=== PATIENT | male | born 1985 | race Caucasian/White ===

== ENCOUNTER 2018-01-01 21:31 | Observation (INO) | payer OTHER ==
[~2018-01-01] VITALS: Ht 170.2 cm; Wt 68.0 kg
[2018-01-01 21:47] LABS: BASOPHILS ABSOLUTE AUTO 0.05 K/mm3 (0.00-0.23); BASOPHILS PERCENT AUTO 1 % (0-2); EOSINOPHILS ABSOLUTE AUTO 0.11 K/mm3 (0.00-0.68); EOSINOPHILS PERCENT AUTO 2 % (0-6); Hemoglobin 14.7 g/dL (13.5-17.5); IMMATURE GRAN ABSOLUTE AUTO 0.02 K/mm3 (0.00-0.10); IMMATURE GRAN PERCENT AUTO 0 % (0-1); LYMPHOCYTES ABSOLUTE AUTO 2.53 K/mm3 (0.84-5.20); LYMPHOCYTES PERCENT AUTO 34 % (21-46); MONOCYTES ABSOLUTE AUTO 0.68 K/mm3 (0.16-1.47); MONOCYTES PERCENT AUTO 9 % (4-13); Mean Corpuscular HGB Conc 34.2 g/dL (31.5-36.5); Mean Corpuscular Volume 94 fL (80-100); Mean Platelet Volume 11.3 fL (9.1-12.4); NEUTROPHILS ABSOLUTE AUTO 4.17 K/mm3 (1.96-9.15); NEUTROPHILS PERCENT AUTO 55 % (41-73); Platelet Count 230 K/mm3 (150-400); RDW Coefficient Variation 11.9 % (11.7-14.2); RDW Standard Deviation 40.9 fL (35.1-46.3); Red Blood Cell Count 4.59 M/mm3 (4.30-5.90); White Blood Cell Count 7.56 K/mm3 (4.00-11.30)
[2018-01-01 21:57] LABS: Alanine Aminotransfer (ALT/SGP 30 U/L (12-78); Albumin, Blood 3.8 g/dL (3.4-5.0); Albumin/Globulin Ratio 1.2 (0.8-1.8); Alk Phos 50 U/L (50-136); Anion Gap 10 mmol/L (6-16); Aspartate Aminotrans (AST/SGOT 33 U/L (12-37); Bilirubin, Total 0.5 mg/dL (0.1-1.0); Blood Urea Nitrogen 11 mg/dL (8-24); Bun/Creatinine Ratio 9.6 (12.0-20.0); CO2, Blood 26 mmol/L (21-32); Calcium, Blood 8.2 mg/dL (8.5-10.1); Chloride, Blood 108 mmol/L (98-108); Creatinine, Blood 1.15 mg/dL (0.60-1.20); Globulin, Blood 3.3 g/dL (2.2-4.0); Glomerular Filtration Rate >60 (60-); Glucose, Blood 89 mg/dL (70-99); Potassium, Blood 4.5 mmol/L (3.5-5.5); Sodium, Blood 144 mmol/L (136-145); Total Protein, Blood 7.1 g/dL (6.4-8.2)
[2018-01-01 23:35] LABS: Ethanol (Alcohol), Blood, Med 220 mg/dL
[2018-01-15] MEDS ORDERED: ACET500 (23:55)
[2018-01-15] MEDS ORDERED: IBUP400 PO (23:56)
[2018-01-16] MEDS ORDERED: TRAM50 PO (00:38)
[2018-01-16] MEDS ORDERED: Protonix40 MG PO (00:38)
== END 2018-01-02 05:37 | disposition home or self-care (01) ==
LOC: ER 21:31 → EOR 21:32
PROVIDERS: Emergency Medicine
DX: F10.129 Alcohol abuse with intoxication, unspecified (principal); K29.20 Alcoholic gastritis without bleeding; F17.200 Nicotine dependence, unspecified, uncomplicated; Y90.7 Blood alcohol level of 200-239 mg/100 ml
CPT/HCPCS: 36415; 80053; 83690; 85025; 96360; 96361; 99284-25; G0378; G0480; J7030

== ENCOUNTER 2019-06-18 08:52 | Emergency (ER) | payer OTHER ==
[~2019-06-18] VITALS: Ht 170.2 cm; Wt 64.4 kg
[~2019-06-18 08:52] MED LIST: ACET500; BENZ100A PO; Cheratussin AC118 ML PO; Flonase 0.05% N16 GM; IBUP400 PO; IBUP600 PO; Protonix40 MG PO; Sudogest30 MG PO; TRAM50 PO
[2019-06-18] MEDS ORDERED: Norco 10-325 T1 EACH PO (10:23)
[2019-06-18] MEDS ORDERED: Crutch1 EACH MISC (10:24)
== END 2019-06-18 10:38 | disposition home or self-care (01) ==
LOC: ER 08:52
DX: M23.91 Unspecified internal derangement of right knee (principal); K21.9 Gastro-esophageal reflux disease without esophagitis; Z88.0 Allergy status to penicillin; Z87.891 Personal history of nicotine dependence
CPT/HCPCS: 29505; 73564; 99283-25; A9270-GY

== ENCOUNTER 2019-07-07 17:41 | Emergency (ER) | payer OTHER ==
[~2019-07-07] VITALS: Ht 170.2 cm; Wt 69.8 kg
[~2019-07-07 17:41] MED LIST changes: +Crutch1 EACH MISC; +Norco 10-325 T1 EACH PO
== END 2019-07-07 20:45 | disposition home or self-care (01) ==
LOC: ER 17:41
DX: T88.59XA Other complications of anesthesia, initial encounter (principal); L29.8 Other pruritus; T41.3X5A Adverse effect of local anesthetics, initial encounter; K21.9 Gastro-esophageal reflux disease without esophagitis; Z88.0 Allergy status to penicillin; Z87.891 Personal history of nicotine dependence; Z98.890 Other specified postprocedural states
CPT/HCPCS: 36415; 93005; 93010; 96361; 96374; 96375; 96376; 99283-25; J1100; J1200; J7030

== ENCOUNTER 2019-07-14 09:23 | Emergency (ER) | payer OTHER ==
[~2019-07-14] VITALS: Ht 170.2 cm; Wt 74.8 kg
[2019-07-14] MEDS ORDERED: IBUP600 PO (10:52)
[2019-07-14] MEDS ORDERED: HYDR1TAB94 PO (10:52)
== END 2019-07-14 11:29 | disposition home or self-care (01) ==
LOC: ER 09:23
DX: S62.307A Unspecified fracture of fifth metacarpal bone, left hand, initial encounter for closed fracture (principal); S50.01XA Contusion of right elbow, initial encounter; K21.9 Gastro-esophageal reflux disease without esophagitis; Z88.0 Allergy status to penicillin; Z87.891 Personal history of nicotine dependence; V29.9XXA Motorcycle rider (driver) (passenger) injured in unspecified traffic accident, initial encounter
CPT/HCPCS: 29125; 73080; 73110; 73130; 99283-25

== ENCOUNTER 2019-08-14 08:00 | Emergency (ER) | payer OTHER ==
[~2019-08-14] VITALS: Ht 170.2 cm; Wt 69.0 kg
[~2019-08-14 08:00] MED LIST changes: +HYDR1TAB94 PO
[2019-08-14 09:48] LABS: Influenza A Negative (NEGATIVE); Influenza B Negative (NEGATIVE)
[2019-08-14] MEDS ORDERED: BENZ100A PO (10:12)
[2019-08-14] MEDS ORDERED: ALBU90OI INH (10:12)
== END 2019-08-14 10:19 | disposition home or self-care (01) ==
LOC: ER 08:00
PROVIDERS: Emergency Medicine
DX: J40 Bronchitis, not specified as acute or chronic (principal); Z88.0 Allergy status to penicillin; Z87.891 Personal history of nicotine dependence
CPT/HCPCS: 71046; 87804; 93005; 93010; 94640; 99284-25

== ENCOUNTER 2019-08-26 14:05 | Emergency (ER) | payer OTHER ==
[~2019-08-26] VITALS: Ht 170.2 cm; Wt 70.8 kg
[~2019-08-26 14:05] MED LIST changes: +ALBU90OI INH; +CODEINE-GUAIFE120 ML PO
== END 2019-08-26 14:25 | disposition home or self-care (01) ==
LOC: ER 14:05
DX: J20.8 Acute bronchitis due to other specified organisms (principal); Z88.0 Allergy status to penicillin; Z79.899 Other long term (current) drug therapy; Z87.891 Personal history of nicotine dependence
CPT/HCPCS: 99281

== ENCOUNTER 2019-08-31 13:58 | Emergency (ER) | payer OTHER ==
[~2019-08-31] VITALS: Ht 170.2 cm; Wt 63.5 kg
[2019-08-31 15:37] LABS: BASOPHILS ABSOLUTE AUTO 0.05 K/mm3 (0.00-0.23); BASOPHILS PERCENT AUTO 1 % (0-2); EOSINOPHILS ABSOLUTE AUTO 0.01 K/mm3 (0.00-0.68); EOSINOPHILS PERCENT AUTO 0 % (0-6); Hematocrit 47.2 % (37.0-53.0); Hemoglobin 15.9 g/dL (13.5-17.5); IMMATURE GRAN ABSOLUTE AUTO 0.01 K/mm3 (0.00-0.10); IMMATURE GRAN PERCENT AUTO 0 % (0-1); LYMPHOCYTES ABSOLUTE AUTO 1.37 K/mm3 (0.84-5.20); LYMPHOCYTES PERCENT AUTO 24 % (21-46); MONOCYTES ABSOLUTE AUTO 0.51 K/mm3 (0.16-1.47); MONOCYTES PERCENT AUTO 9 % (4-13); Mean Corpuscular HGB 32.8 pg (26.0-34.0); Mean Corpuscular HGB Conc 33.7 g/dL (31.5-36.5); Mean Corpuscular Volume 97 fL (80-100); Mean Platelet Volume 11.4 fL (9.1-12.4); NEUTROPHILS ABSOLUTE AUTO 3.69 K/mm3 (1.96-9.15); NEUTROPHILS PERCENT AUTO 65 % (41-73); Platelet Count 224 K/mm3 (150-400); RDW Coefficient Variation 11.9 % (11.7-14.2); RDW Standard Deviation 43.2 fL (35.1-46.3); Red Blood Cell Count 4.85 M/mm3 (4.30-5.90); White Blood Cell Count 5.64 K/mm3 (4.00-11.30)
[2019-08-31 15:50] LABS: Alanine Aminotransfer (ALT/SGP 41 U/L (12-78); Albumin/Globulin Ratio 1.2 (0.8-1.8); Alk Phos 65 U/L (50-136); Anion Gap 9 mmol/L (6-16); Aspartate Aminotrans (AST/SGOT 40 U/L (12-37); Bilirubin, Total 0.5 mg/dL (0.1-1.0); Blood Urea Nitrogen 10 mg/dL (8-24); Bun/Creatinine Ratio 12.3 (12.0-20.0); CO2, Blood 27 mmol/L (21-32); Calcium, Blood 8.6 mg/dL (8.5-10.1); Chloride, Blood 102 mmol/L (98-108); Creatinine, Blood 0.81 mg/dL (0.60-1.20); Globulin, Blood 3.4 g/dL (2.2-4.0); Glomerular Filtration Rate >60 (60-); Glucose, Blood 82 mg/dL (70-99); Potassium, Blood 3.7 mmol/L (3.5-5.5); Sodium, Blood 138 mmol/L (136-145); Total Protein, Blood 7.4 g/dL (6.4-8.2)
[2019-08-31 16:59] LABS: Source, Urine Clean Catch
[2019-08-31 17:01] LABS: Bilirubin, Urine Neg (Neg); Blood, Urine Neg (Neg); Glucose Qualitative, Urine Neg (Neg); Ketones, Urine 2+ (Neg); Leukocyte Esterase, Urine Neg (Neg); Nitrite, Urine Neg (Neg); Protein, Urine Neg (Neg); Urobilinogen, Urine NORM (Normal)
[2019-08-31 17:17] LABS: Appearance, Urine Hazy (Clear); Color, Urine Yellow (P-Yellow)
[2019-08-31 17:18] LABS: Amorphous Mod (0-Heavy); Bacteria Mod /hpf; Red Blood Cells, Urine 0-2 /hpf (0-2); Squamous Epithelial Cells Rare /hpf (Few); White Blood Cells, Urine 0-2 /hpf (0-5)
[2019-08-31] MEDS ORDERED: Protonix40 MG PO (18:35)
== END 2019-08-31 18:48 | disposition home or self-care (01) ==
LOC: ER 13:58
PROVIDERS: Emergency Medicine
DX: R55 Syncope and collapse (principal); K29.70 Gastritis, unspecified, without bleeding; K27.9 Peptic ulcer, site unspecified, unspecified as acute or chronic, without hemorrhage or perforation; R00.0 Tachycardia, unspecified; R31.29 Other microscopic hematuria; K21.9 Gastro-esophageal reflux disease without esophagitis; Z88.0 Allergy status to penicillin
CPT/HCPCS: 36415; 71046; 80053; 81001; 85025; 87086; 93005; 93010; 96361; 96374; 99284-25; J2405; J7030

== ENCOUNTER 2019-09-23 15:08 | Emergency (ER) | payer OTHER ==
[~2019-09-23] VITALS: Ht 170.2 cm; Wt 64.4 kg
[2019-09-23] MEDS ORDERED: AZIT250 PO (16:20)
[2019-09-23] MEDS ORDERED: TESSALON PERLE100 MG PO (16:20)
== END 2019-09-23 16:20 | disposition home or self-care (01) ==
LOC: ER 15:08
DX: J40 Bronchitis, not specified as acute or chronic (principal); Z88.0 Allergy status to penicillin; Z79.899 Other long term (current) drug therapy; K21.9 Gastro-esophageal reflux disease without esophagitis
CPT/HCPCS: 71046; 99283-25

== ENCOUNTER 2019-12-27 14:48 | Emergency (ER) | payer OTHER ==
[~2019-12-27] VITALS: Ht 170.2 cm; Wt 63.5 kg
[~2019-12-27 14:48] MED LIST changes: +AZIT250 PO; +Acetaminophen-1 EAC1 PO; +CRUTCH4 XX; +IBU800 M1 PO; +Norco 5-325 Ta1 EACH PO; +TESSALON PERLE100 MG PO
[2019-12-27] MEDS ORDERED: HYDR1TAB94 PO (17:13)
[2019-12-27] MEDS ORDERED: IBUP400 PO (17:13)
== END 2019-12-27 16:30 | disposition home or self-care (01) ==
LOC: ER 14:48
DX: S01.01XA Laceration without foreign body of scalp, initial encounter (principal); R07.9 Chest pain, unspecified; K21.9 Gastro-esophageal reflux disease without esophagitis; Z87.891 Personal history of nicotine dependence; Z87.81 Personal history of (healed) traumatic fracture; W19.XXXA Unspecified fall, initial encounter
CPT/HCPCS: 36415; 70450; 71046; 96374; 99283-25; J1885

== ENCOUNTER 2020-02-25 20:09 | Inpatient (IN) | payer OTHER ==
[~2020-02-25] VITALS: Ht 170.2 cm; Wt 65.0 kg
[~2020-02-25 20:09] MED LIST changes: +ONDA4 MM
[2020-02-25 20:23] LABS: BASOPHILS ABSOLUTE AUTO 0.08 K/mm3 (0.00-0.23); BASOPHILS PERCENT AUTO 1 % (0-2); EOSINOPHILS ABSOLUTE AUTO 0.13 K/mm3 (0.00-0.68); EOSINOPHILS PERCENT AUTO 2 % (0-6); Hematocrit 47.9 % (37.0-53.0); Hemoglobin 16.1 g/dL (13.5-17.5); IMMATURE GRAN ABSOLUTE AUTO 0.02 K/mm3 (0.00-0.10); IMMATURE GRAN PERCENT AUTO 0 % (0-1); LYMPHOCYTES ABSOLUTE AUTO 3.32 K/mm3 (0.84-5.20); LYMPHOCYTES PERCENT AUTO 40 % (21-46); MONOCYTES ABSOLUTE AUTO 0.83 K/mm3 (0.16-1.47); MONOCYTES PERCENT AUTO 10 % (4-13); Mean Corpuscular HGB 32.5 pg (26.0-34.0); Mean Corpuscular HGB Conc 33.6 g/dL (31.5-36.5); Mean Corpuscular Volume 97 fL (80-100); Mean Platelet Volume 11.2 fL (9.1-12.4); NEUTROPHILS ABSOLUTE AUTO 4.03 K/mm3 (1.96-9.15); NEUTROPHILS PERCENT AUTO 48 % (41-73); Platelet Count 210 K/mm3 (150-400); RDW Coefficient Variation 11.6 % (11.7-14.2); RDW Standard Deviation 41.4 fL (35.1-46.3); Red Blood Cell Count 4.95 M/mm3 (4.30-5.90); White Blood Cell Count 8.41 K/mm3 (4.00-11.30)
[2020-02-25 20:42] LABS: Alanine Aminotransfer (ALT/SGP 32 U/L (12-78); Albumin/Globulin Ratio 1.1 (0.8-1.8); Alk Phos 71 U/L (50-136); Anion Gap 11 mmol/L (6-16); Aspartate Aminotrans (AST/SGOT 38 U/L (12-37); Bilirubin, Total 0.5 mg/dL (0.1-1.0); Blood Urea Nitrogen 12 mg/dL (8-24); Bun/Creatinine Ratio 12.2 (12.0-20.0); CO2, Blood 24 mmol/L (21-32); Calcium, Blood 8.5 mg/dL (8.5-10.1); Chloride, Blood 102 mmol/L (98-108); Creatinine, Blood 0.99 mg/dL (0.60-1.20); Ethanol (Alcohol), Blood, Med 390 mg/dL; Globulin, Blood 3.6 g/dL (2.2-4.0); Glomerular Filtration Rate >60 (60-); Glucose, Blood 131 mg/dL (70-99); Potassium, Blood 3.5 mmol/L (3.5-5.5); Sodium, Blood 137 mmol/L (136-145); Total Protein, Blood 7.6 g/dL (6.4-8.2)
[2020-02-25] MEDS ORDERED: OMEP20ER PO (23:21)
[2020-02-25] MEDS ORDERED: MELO7.5 PO (23:22)
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
--- NOTE | 2020-02-26 06:26 | NUR ---
PT NEW ADMIT THIS SHIFT FOR ORBITAL FX. PT VSS, PT DENEIS DIZZINESS. SWELLING TO RIGHT EYE IS SOMEWHAT IMPROVED THIS AM, PT IS ABLE TO OPEN EYE MORE, ALTHOUGH STILL LESS THAN HALF WAY. PT STATES VISION IS A LITTLE BETTER THIS AM. PAIN MGD PER EMAR AND WITH ICE THERAPY. PT PLEASANT AND COOPERATIVE W/CARE. DR LE UPDATED THIS AM.
--- NOTE | 2020-02-26 17:01 | NUR ---
SHIFT SUMMARY PT HAS DONE WELL TODAY BUT STRUGGLES W/ PAIN MANAGEMENT. R EYE SWELLING REMAINED THE SAME. PT HAS HAD ICE ON R EYE T/O SHIFT. UP IND IN ROOM. EATING/DRINKING/VOIDING WELL.
--- NOTE | 2020-02-27 09:43 | NUR ---
DR PEACOCK NOTIFIED OF COVID TEST BEING DONE BY OTHER STAFF THROUGH ADMITTING.
[2020-02-27] MEDS ORDERED: TIMDOROPSO RIGHTEYE (09:51)
[2020-02-27] MEDS ORDERED: LATA.005SO RIGHTEYE (09:52)
[2020-02-27] MEDS ORDERED: CEPH500 PO (09:53)
[2020-02-27] MEDS ORDERED: HYDR1TAB94 PO (09:54)
--- NOTE | 2020-02-27 10:36 | NUR ---
DISCHARGE: PT REPORTS UNDERSTANDING OF DISHCARGE INSTRUCTIONS. PT GIVEN SCRIPTS. PT REPORTS AWARE OF GOING TO ADMITTING AT 11:30 FOR COVID TEST, THEN TO ENT AT 13:30. PT REPORTS WANTING TO WALK OUT OF ROOM. PT SENT WITH BELONGINGS. PT WAITING UNTIL APPROX 11:30 TO AMBULATE TO ADMITTING FOR TEST.
--- NOTE | 2020-02-27 10:50 | NUR ---
PT AMBULATED OUT OF ROOM, REPORTS GOING TO ADMITTING FOR COVID TEST. THEN GOING TO GET SCRIPTS AND THEN TO EYE FOLLOW UP.
[2020-03-05] MEDS ORDERED: ONDA4 PO (06:33)
[2020-03-05] MEDS ORDERED: IBUP200 PO (06:34)
[2020-03-05] MEDS ORDERED: ACET500 PO (06:35)
== END 2020-02-27 10:52 | disposition home or self-care (01) | DRG 87 ==
LOC: ER 20:09 → SURS 20:10
PROVIDERS: Emergency Medicine; ADMIT Surgery
DX: S02.85XA Fracture of orbit, unspecified, initial encounter for closed fracture (principal); Y04.2XXA Assault by strike against or bumped into by another person, initial encounter; Y93.9 Activity, unspecified; Y92.9 Unspecified place or not applicable; Z87.891 Personal history of nicotine dependence; Z59.0 Homelessness
CPT/HCPCS: 70450; 70486; 72125; 80053; 85025; 99285-25; A9270-GY; G0480; J1170; J3010; J7120

== ENCOUNTER 2020-08-21 18:28 | Emergency (ER) | payer OTHER ==
[~2020-08-21 18:28] MED LIST changes: +ACET500 PO; +CEPH500 PO; +IBUP200 PO; +LATA.005SO RIGHTEYE; +MELO7.5 PO; +OMEP20ER PO; +ONDA4 PO; +TIMDOROPSO RIGHTEYE
== END 2020-08-21 19:23 | disposition left against medical advice (07) ==
LOC: ER 18:28
DX: Z53.21 Procedure and treatment not carried out due to patient leaving prior to being seen by health care provider (principal)

== ENCOUNTER 2020-09-20 09:20 | Emergency (ER) | payer OTHER ==
[~2020-09-20] VITALS: Ht 167.6 cm; Wt 70.3 kg
[2020-09-20] MEDS ORDERED: OMEP20ER PO (10:43)
[2020-09-20] MEDS ORDERED: Prednisone20 MG PO (11:03)
== END 2020-09-20 11:20 | disposition home or self-care (01) ==
LOC: ER 09:20
DX: L23.89 Allergic contact dermatitis due to other agents (principal); K21.9 Gastro-esophageal reflux disease without esophagitis; Z88.0 Allergy status to penicillin; Z79.899 Other long term (current) drug therapy; Z87.891 Personal history of nicotine dependence
CPT/HCPCS: 99283; J7512

== ENCOUNTER 2020-10-13 12:41 | Emergency (ER) | payer OTHER ==
[~2020-10-13] VITALS: Ht 170.2 cm; Wt 72.6 kg
[~2020-10-13 12:41] MED LIST changes: +Prednisone20 MG PO
[2020-10-13 13:50] LABS: BASOPHILS ABSOLUTE AUTO 0.07 K/mm3 (0.00-0.23); BASOPHILS PERCENT AUTO 2 % (0-2); EOSINOPHILS PERCENT AUTO 2 % (0-6); Hematocrit 44.5 % (37.0-53.0); Hemoglobin 15.1 g/dL (13.5-17.5); IMMATURE GRAN ABSOLUTE AUTO 0.01 K/mm3 (0.00-0.10); IMMATURE GRAN PERCENT AUTO 0 % (0-1); LYMPHOCYTES PERCENT AUTO 32 % (21-46); MONOCYTES ABSOLUTE AUTO 0.62 K/mm3 (0.16-1.47); MONOCYTES PERCENT AUTO 15 % (4-13); Mean Corpuscular HGB 32.5 pg (26.0-34.0); Mean Corpuscular HGB Conc 33.9 g/dL (31.5-36.5); Mean Corpuscular Volume 96 fL (80-100); Mean Platelet Volume 11.5 fL (9.1-12.4); NEUTROPHILS ABSOLUTE AUTO 2.01 K/mm3 (1.96-9.15); NEUTROPHILS PERCENT AUTO 49 % (41-73); Platelet Count 191 K/mm3 (150-400); RDW Coefficient Variation 12.1 % (11.7-14.2); RDW Standard Deviation 43.3 fL (35.1-46.3); Red Blood Cell Count 4.64 M/mm3 (4.30-5.90); White Blood Cell Count 4.11 K/mm3 (4.00-11.30)
[2020-10-13 14:02] LABS: Alanine Aminotransfer (ALT/SGP 42 U/L (12-78); Albumin, Blood 3.6 g/dL (3.4-5.0); Alk Phos 52 U/L (50-136); Anion Gap 6 mmol/L (6-16); Aspartate Aminotrans (AST/SGOT 31 U/L (12-37); Bilirubin, Total 0.5 mg/dL (0.1-1.0); Blood Urea Nitrogen 11 mg/dL (8-24); Bun/Creatinine Ratio 9.7 (12.0-20.0); CO2, Blood 25 mmol/L (21-32); Calcium, Blood 8.2 mg/dL (8.5-10.1); Chloride, Blood 110 mmol/L (98-108); Creatinine, Blood 1.13 mg/dL (0.60-1.20); Globulin, Blood 3.5 g/dL (2.2-4.0); Glomerular Filtration Rate >60 (60-); Glucose, Blood 108 mg/dL (70-99); Potassium, Blood 4.3 mmol/L (3.5-5.5); Sodium, Blood 141 mmol/L (136-145); Total Protein, Blood 7.1 g/dL (6.4-8.2); Troponin I <0.015 ng/mL (0.000-0.040)
[2020-10-13] MEDS ORDERED: CYCL10 PO (15:24)
[2020-10-13] MEDS ORDERED: LIDO700A20 TOP (15:24)
== END 2020-10-13 15:48 | disposition home or self-care (01) ==
LOC: ER 12:41
PROVIDERS: Physician Assistant
DX: R07.9 Chest pain, unspecified (principal)
CPT/HCPCS: 36415; 71275; 80053; 84484; 85025; 93005; 93010; 96374; 99285-25; J1885; Q9967

== ENCOUNTER 2020-10-17 18:18 | Emergency (ER) | payer OTHER ==
[~2020-10-17] VITALS: Ht 170.2 cm; Wt 71.7 kg
[~2020-10-17 18:18] MED LIST changes: +CYCL10 PO; +LIDO700A20 TOP
[2020-10-17] MEDS ORDERED: PRED20 PO (22:18)
== END 2020-10-17 22:25 | disposition home or self-care (01) ==
LOC: ER 18:18
DX: R11.2 Nausea with vomiting, unspecified (principal); T48.1X5A Adverse effect of skeletal muscle relaxants [neuromuscular blocking agents], initial encounter; K21.9 Gastro-esophageal reflux disease without esophagitis; Z88.0 Allergy status to penicillin; Z87.891 Personal history of nicotine dependence
CPT/HCPCS: 99283; A9270; J7512

== ENCOUNTER 2021-02-14 23:49 | Emergency (ER) | payer OTHER ==
[~2021-02-14] VITALS: Ht 170.2 cm; Wt 70.3 kg
[~2021-02-14 23:49] MED LIST changes: +PRED20 PO
== END 2021-02-15 05:04 | disposition home or self-care (01) ==
LOC: ER 23:49
DX: S01.81XA Laceration without foreign body of other part of head, initial encounter (principal); Z88.0 Allergy status to penicillin; Z79.899 Other long term (current) drug therapy; Z87.891 Personal history of nicotine dependence; W05.1XXA Fall from non-moving nonmotorized scooter, initial encounter
CPT/HCPCS: 12013; 70450; 70486; 72125; 99283-25